=== PATIENT | male | born 1955 | race Caucasian/White ===

== ENCOUNTER 2017-01-25 22:27 | Inpatient (IN) | payer MEDICAID ==
[~2017-01-25] VITALS: Ht 172.7 cm; Wt 113.7 kg
[2017-01-25] MEDS ORDERED: ASPIRIN 81 MG TABLET CHEW PO ONE (23:00)
[2017-01-25] MEDS ORDERED: SODIUM CHLORIDE FLUSH 10ML SYR IVF ONE (23:00)
[2017-01-25] MEDS ORDERED: NITROGLYCERIN SINGLE TAB 0.4 MG SL PRN (23:00)
[2017-01-25] MEDS ORDERED: HYDR25TA6 PO (23:10)
[2017-01-25] MEDS ORDERED: SIMV40TA3 PO (23:10)
[2017-01-25] MEDS ORDERED: GABA400C PO (23:10)
[2017-01-25] MEDS ORDERED: CLOP75TA PO (23:10)
[2017-01-25] MEDS ORDERED: FURO-92 PO (23:10)
[2017-01-25] MEDS ORDERED: TIOT18CA INH (23:10)
[2017-01-25] MEDS ORDERED: CARV6.252 PO (23:10)
[2017-01-25] MEDS ORDERED: CHOL20002 PO (23:10)
[2017-01-25] MEDS ORDERED: BACL-19 PO (23:10)
[2017-01-25 23:26] LABS: BLOOD UREA NITROGEN 10 mg/dL (7-18)
[2017-01-25] MEDS ORDERED: LORazepam 1MG TABLET ONE (23:45)
[2017-01-25] MEDS ORDERED: OXYcodone/APAP 5/325MG TABLET ONE (23:46)
[2017-01-25] MEDS ORDERED: ASPIRIN 81 MG TABLET CHEW ONE (23:55)
[2017-01-26] MEDS ORDERED: LORazepam 1MG TABLET PO ONE
[2017-01-26] MEDS ORDERED: OXYcodone/APAP 5/325MG TABLET PO ONE
[2017-01-26] MEDS ORDERED: SODIUM CHLORIDE FLUSH 10ML SYR IVF PRN (01:30)
[2017-01-26 02:02] VITALS: BP 112/70
[2017-01-26] MEDS ORDERED: LABETALOL 5MG/ML 40ML VIAL IVPush PRN (05:30)
[2017-01-26] MEDS ORDERED: ACETAMINOPHEN 325 MG TABLET PO PRN (05:30)
[2017-01-26] MEDS ORDERED: METHOCARBAMOL 750 MG TABLET PO PRN (05:30)
[2017-01-26] MEDS ORDERED: ONDANSETRON 2MG/ML, 2ML IVPush PRN (05:30)
[2017-01-26] MEDS ORDERED: NICOTINE 14MG/24 HR PATCH.TD24 TD SCH (05:30)
[2017-01-26] MEDS ORDERED: morphine SULFATE 10 MG/ML, 1ML IVPush PRN (05:30)
[2017-01-26] MEDS ORDERED: POTASSIUM CHLORIDE 40 MEQ in SODIUM CHLORIDE 0.9% 500 ML IV ONE (05:30)
[2017-01-26] MEDS ORDERED: ENALAPRILAT 1.25 MG/ML, 2ML IVPush PRN (05:30)
[2017-01-26] MEDS ORDERED: POLYETHYLENE GLYCOL 17 GM PACKET PO PRN (05:30)
[2017-01-26] MEDS ORDERED: BISACODYL 10 MG SUPP PR PRN (05:30)
[2017-01-26] MEDS ORDERED: hydrALAzine 20 MG/ML, 1ML IVPush PRN (05:30)
[2017-01-26] MEDS: GABAPENTIN 400 MG CAPSULE PO SCH ×2 (05:58→11:00)
[2017-01-26] MEDS: SODIUM CHLORIDE 0.9% 1,000 ML IV SCH ×2 (05:58→16:25)
[2017-01-26] MEDS: HEPARIN 5,000 UNITS/ML, 1ML SQ SCH ×2 (05:58→13:30)
[2017-01-26] MEDS ORDERED: ASPIRIN 81 MG TABLET EC PO SCH (06:00)
[2017-01-26 06:56] VITALS: BP 114/82
[2017-01-26 07:00] LABS: IS PT STATUS REG ER OR PRE ER? NO
[2017-01-26] MEDS ORDERED: REGADENOSON 0.4 MG/5 ML SYRINGE ONE ×2 (07:48→14:01)
[2017-01-26] MEDS: IPRATROPIUM 0.5 MG/2.5 ML INHA HHN SCH ×2 (08:08→15:00)
[2017-01-26 08:25] LABS: BLOOD UREA NITROGEN 12 mg/dL (7-18)
[2017-01-26] MEDS ORDERED: CARVEDILOL 6.25 MG TABLET PO SCH (09:00)
[2017-01-26] MEDS ORDERED: CHOLECALCIFEROL 1,000 UNIT TABLET PO SCH (09:00)
[2017-01-26] MEDS ORDERED: CLOPIDOGREL 75 MG TABLET PO SCH (09:00)
[2017-01-26] MEDS ORDERED: SENNA/DOCUSATE TABLET PO SCH (09:00)
[2017-01-26] MEDS ORDERED: BACLOFEN 10 MG TABLET PO SCH (09:00)
[2017-01-26 09:48] LABS: DAU SCREEN DISCLAIMER
[2017-01-26] MEDS ORDERED: GADOBUTROL 10 MMOL/10 ML PFS ONE (11:45)
[2017-01-26 12:51] LABS: ABG COLLECTION SITE LEFT RADIAL; COLLATERAL CIRCULATION TESTING NORMAL
[2017-01-26 13:11] LABS: IS PT STATUS REG ER OR PRE ER? NO
[2017-01-26 13:17] LABS: ASPARTATE AMINO TRANSFERASE 14 U/L (15-37); BLOOD UREA NITROGEN 10 mg/dL (7-18)
[2017-01-26 16:29] VITALS: BP 122/75
[2017-01-26 19:11] LABS: IS PT STATUS REG ER OR PRE ER? NO
[2017-01-26] MEDS ORDERED: SIMVASTATIN 40 MG TABLET PO SCH (21:00)
== END 2017-01-26 19:39 | disposition left against medical advice (07) | DRG 311 ==
LOC: ED 23:59 → EDIP 01-26 01:07 → 5SO 01-26 02:34
PROVIDERS: ADMIT Internal Medicine; ATTEND Internal Medicine
PROC: 0T9B70Z Drainage of Bladder with Drainage Device, Via Natural or Artificial Opening (ICD-10-PCS; principal; 2017-01-26)
DX: I24.9 Acute ischemic heart disease, unspecified (principal); G93.41 Metabolic encephalopathy; E44.0 Moderate protein-calorie malnutrition; I25.10 Atherosclerotic heart disease of native coronary artery without angina pectoris; I73.9 Peripheral vascular disease, unspecified; J44.9 Chronic obstructive pulmonary disease, unspecified; E78.5 Hyperlipidemia, unspecified; I10 Essential (primary) hypertension; E87.6 Hypokalemia; R51 Headache; Z53.21 Procedure and treatment not carried out due to patient leaving prior to being seen by health care provider; M54.2 Cervicalgia; Z95.1 Presence of aortocoronary bypass graft; Z79.899 Other long term (current) drug therapy; Z88.6 Allergy status to analgesic agent; Z68.38 Body mass index [BMI] 38.0-38.9, adult
CPT/HCPCS: 36415; 36600; 70450; 70551; 71010; 72156; 78452; 80048; 80053; 80307; 81003; 82040; 82140; 82607; 82803; 83036; 83735; 83880; 84439; 84443; 84484; 85025; 85379; 85610; 85730; 93005; 93017; 93306; 93880; 99285; A9585; J1644; J2785; J3480; A9502; C9898; J7030; J7040

== ENCOUNTER 2017-02-20 14:14 | Inpatient (IN) | payer MEDICAID ==
[~2017-02-20] VITALS: Ht 172.7 cm; Wt 115.0 kg
[~2017-02-20 14:14] MED LIST: BACL-19 PO; CARV6.252 PO; CHOL20002 PO; CLOP75TA PO; FURO-92 PO; GABA400C PO; HYDR25TA6 PO; SIMV40TA3 PO; TIOT18CA INH
[2017-02-20] MEDS ORDERED: SODIUM CHLORIDE FLUSH 10ML SYR IVF ONE (16:00)
[2017-02-20 16:16] LABS: HEMATOCRIT 39.7 % (39.2-51.8); HEMOGLOBIN 13.3 g/dL (13.7-18.0); WHITE BLOOD COUNT 9.6 x10^3/uL (3.4-10)
[2017-02-20 16:24] LABS: BLOOD UREA NITROGEN 19 mg/dL (7-18)
[2017-02-20 16:29] LABS: ASPARTATE AMINO TRANSFERASE 23 U/L (15-37)
[2017-02-20 16:36] LABS: IS PT STATUS REG ER OR PRE ER? YES
[2017-02-20] MEDS ORDERED: HYDR-879 PO (16:44)
[2017-02-20] MEDS ORDERED: ENOXAPARIN 100 MG/ML SQ ONE (17:30)
[2017-02-20] MEDS ORDERED: CEFTRIAXONE PMX 1GM/50ML 50 ML IVPB ONE (17:30)
[2017-02-20] MEDS ORDERED: SODIUM CHLORIDE 0.9% 1,000ML IVBOLUS ONE (17:30)
[2017-02-20] MEDS ORDERED: AZITHROMYCIN 500 MG in SODIUM CHLORIDE 0.9% 250 ML IV ONE (17:30)
[2017-02-20] MEDS ORDERED: ASPIRIN 81 MG TABLET CHEW PO ONE (17:30)
[2017-02-20] MEDS ORDERED: CEFTRIAXONE PMX 1GM/50ML 50 ML ONE (17:47)
[2017-02-20] MEDS ORDERED: ASPIRIN 81 MG TABLET CHEW ONE (17:53)
[2017-02-20] MEDS ORDERED: ACETAMINOPHEN 325 MG TABLET PO PRN (19:00)
[2017-02-20] MEDS ORDERED: ONDANSETRON 2MG/ML, 2ML IVPush PRN (19:00)
[2017-02-20] MEDS ORDERED: POLYETHYLENE GLYCOL 17 GM PACKET PO PRN (19:00)
[2017-02-20] MEDS ORDERED: BISACODYL 10 MG SUPP PR PRN (19:00)
[2017-02-20] MEDS ORDERED: HEPARIN 5,000 UNITS/ML, 1ML SQ SCH (19:00)
[2017-02-20] MEDS ORDERED: NICOTINE 21 MG/24 HR PATCH.TD24 TD SCH (19:00)
[2017-02-20 20:45] VITALS: BP 125/68
[2017-02-20] MEDS ORDERED: SIMVASTATIN 40 MG TABLET PO SCH (21:00)
[2017-02-20] MEDS ORDERED: BACLOFEN 10 MG TABLET PO SCH (21:00)
[2017-02-20] MEDS: GABAPENTIN 400 MG CAPSULE PO SCH (22:11)
[2017-02-20] MEDS: BACLOFEN 10 MG TABLET PO SCH (22:12)
[2017-02-20] MEDS: NS + 20MEQ KCL 1,000 ML IV SCH (22:12)
[2017-02-20 22:40] LABS: IS PT STATUS REG ER OR PRE ER? NO
[2017-02-20] MEDS ORDERED: ALBUTEROL/IPRATROPIUM 2.5MG/0.5MG, 3 ML NPPB PRN (23:00)
[2017-02-21 01:13] VITALS: BP 110/74
[2017-02-21 04:58] LABS: ASPARTATE AMINO TRANSFERASE 21 U/L (15-37); BLOOD UREA NITROGEN 18 mg/dL (7-18)
[2017-02-21 05:00] LABS: IS PT STATUS REG ER OR PRE ER? NO
[2017-02-21] MEDS: BACLOFEN 10 MG TABLET PO SCH ×3 (05:00→16:00)
[2017-02-21] MEDS: GABAPENTIN 400 MG CAPSULE PO SCH ×3 (05:04→16:03)
[2017-02-21] MEDS: HYDROcodone/APAP 10/325 MG TABLET PO PRN ×2 (05:04→12:47)
[2017-02-21 05:45] LABS: HEMATOCRIT 37.5 % (39.2-51.8); HEMOGLOBIN 12.5 g/dL (13.7-18.0)
[2017-02-21] MEDS ORDERED: POTASSIUM CHLORIDE 20 MEQ TAB.ER.PRT PO SCH (08:00)
[2017-02-21 08:20] VITALS: BP_SYST 94; BP_SYST 96; BP_DIAS 56; BP_DIAS 60
[2017-02-21] MEDS: NS + 20MEQ KCL 1,000 ML IV SCH ×2 (08:41→16:04)
[2017-02-21] MEDS ORDERED: CARVEDILOL 6.25 MG TABLET PO SCH (09:00)
[2017-02-21] MEDS ORDERED: HYDROCHLOROTHIAZIDE 25 MG TABLET PO SCH (09:00)
[2017-02-21] MEDS ORDERED: FUROSEMIDE 40 MG TABLET PO SCH (09:00)
[2017-02-21] MEDS ORDERED: Tiotropium Bromide** (Spiriva**) 18 MCG INH SCH (09:00)
[2017-02-21] MEDS ORDERED: CLOPIDOGREL 75 MG TABLET PO SCH (09:00)
[2017-02-21] MEDS ORDERED: CHOLECALCIFEROL 1,000 UNIT TABLET PO SCH (09:00)
[2017-02-21] MEDS ORDERED: SENNA/DOCUSATE TABLET PO SCH (09:00)
[2017-02-21 15:57] VITALS: BP 125/69
[2017-02-21] MEDS ORDERED: BACL-19 PO (16:08)
[2017-02-21] MEDS ORDERED: ENAL5TAB PO (16:08)
[2017-02-21] MEDS ORDERED: FLUT1AER INH (16:08)
[2017-02-21] MEDS ORDERED: DOXY100T PO (16:16)
== END 2017-02-21 18:30 | disposition home or self-care (01) | DRG 91 ==
LOC: ED 16:54 → EDIP 17:35 → 5SO 20:36
PROVIDERS: ADMIT Internal Medicine; ATTEND Internal Medicine
DX: G47.419 Narcolepsy without cataplexy (principal); I50.31 Acute diastolic (congestive) heart failure; J96.21 Acute and chronic respiratory failure with hypoxia; I95.9 Hypotension, unspecified; S09.90XA Unspecified injury of head, initial encounter; E87.5 Hyperkalemia; I11.0 Hypertensive heart disease with heart failure; J98.11 Atelectasis; F51.3 Sleepwalking [somnambulism]; M54.2 Cervicalgia; W19.XXXA Unspecified fall, initial encounter; Z99.81 Dependence on supplemental oxygen; F17.210 Nicotine dependence, cigarettes, uncomplicated; G89.29 Other chronic pain; I73.9 Peripheral vascular disease, unspecified; G56.03 Carpal tunnel syndrome, bilateral upper limbs; I25.10 Atherosclerotic heart disease of native coronary artery without angina pectoris; M54.9 Dorsalgia, unspecified; Y93.01 Activity, walking, marching and hiking; J44.9 Chronic obstructive pulmonary disease, unspecified; I25.2 Old myocardial infarction; Z79.02 Long term (current) use of antithrombotics/antiplatelets; Z79.82 Long term (current) use of aspirin; Z95.1 Presence of aortocoronary bypass graft; Z88.5 Allergy status to narcotic agent; Y92.098 Other place in other non-institutional residence as the place of occurrence of the external cause; Y99.8 Other external cause status
CPT/HCPCS: 36415; 70450; 71010; 72125; 72141; 80053; 80307; 82140; 83605; 83735; 83880; 84484; 85025; 87040; 93005; 96365; 96372; J0456; J0696; J1650; J3480; J7030; J7050

== ENCOUNTER 2017-09-01 05:35 | Inpatient (IN) | payer MEDICAID ==
[~2017-09-01] VITALS: Ht 172.7 cm; Wt 109.0 kg
[~2017-09-01 05:35] MED LIST changes: +DOXY100T PO; +ENAL5TAB PO; +FLUT1AER INH; +HYDR-879 PO
[2017-09-01 06:30] LABS: CHLORIDE 101 mmol/L (98-107)
[2017-09-01 06:31] LABS: ALBUMIN 3.6 g/dL (3.4-5.0); ANION GAP 5 mmol/L (5-15); CALCIUM 9.3 mg/dL (8.5-10.1); CREATININE 1.05 mg/dL (0.7-1.3)
[2017-09-01 06:33] LABS: BASOPHILS # (AUTO) 0.02 x10^3/uL (0-0.1); BASOPHILS % (AUTO) 0 % (0-1); EOSINOPHILS # (AUTO) 0.16 x10^3/uL (0-0.4); EOSINOPHILS % (AUTO) 3 % (1-7); LYMPHOCYTES # (AUTO) 1.77 x10^3/uL (1-3.4); LYMPHOCYTES % (AUTO) 31 % (22-44); MD NO; MEAN CORPUSCULAR HEMOGLOBIN 32.1 pg (27.5-34.5); MEAN CORPUSCULAR HGB CONC 33.9 g/dL (33.2-36.2); MEAN CORPUSCULAR VOLUME 94.7 fL (81-97); MEAN PLATELET VOLUME 6.9 fL (7.4-10.4); MONOCYTES # (AUTO) 0.55 x10^3/uL (0.2-0.8); MONOCYTES % (AUTO) 10 % (2-9); NEUTROPHILS # (AUTO) 3.28 x10^3/uL (1.8-6.8); NEUTROPHILS % (AUTO) 57 % (42-75); PLATELET COUNT 295 x10^3/uL (130-400); RED BLOOD COUNT 5.15 x10^6/uL (4.38-5.82); RED CELL DISTRIBUTION WIDTH 13.8 % (9.4-14.8)
[2017-09-01 06:35] LABS: TROPONIN I < 0.015 ng/mL (0.000-0.045)
[2017-09-01] MEDS ORDERED: AZITHROMYCIN 500 MG in SODIUM CHLORIDE 0.9% 250 ML IV ONE (07:30)
[2017-09-01] MEDS ORDERED: FENT1PAT77 TD (08:21)
[2017-09-01] MEDS ORDERED: FLUTICASONE/VILANTEROL 100-25MCG/INH INH SCH (09:00)
[2017-09-01] MEDS ORDERED: HYDROcodone/APAP 10/325 MG TABLET PO PRN (09:00)
[2017-09-01] MEDS ORDERED: CHOLECALCIFEROL 1,000 UNIT TABLET PO SCH (09:00)
[2017-09-01] MEDS ORDERED: TEMPLATE NON-FORMULARY MED. (Tiotropium Bromide** (Spiriva**) 18 MCG) INH SCH (09:00)
[2017-09-01] MEDS ORDERED: ENALAPRIL 5MG TABLET PO SCH (09:00)
[2017-09-01] MEDS ORDERED: CLOPIDOGREL 75 MG TABLET PO SCH (09:00)
[2017-09-01] MEDS ORDERED: CARVEDILOL 6.25 MG TABLET PO SCH (09:00)
[2017-09-01] MEDS ORDERED: FENTANYL 25 MCG PATCH TD SCH (09:00)
[2017-09-01 09:12] VITALS: BP 122/83
[2017-09-01] MEDS ORDERED: ASPI-496 PO (09:28)
[2017-09-01] MEDS ORDERED: BISACODYL 10 MG SUPP PR PRN (09:30)
[2017-09-01] MEDS ORDERED: DOCUSATE 100 MG CAPSULE PO PRN (09:30)
[2017-09-01] MEDS ORDERED: ACETAMINOPHEN 325 MG TABLET PO PRN (09:30)
[2017-09-01] MEDS ORDERED: POLYETHYLENE GLYCOL 17 GM PACKET PO PRN (09:30)
[2017-09-01] MEDS ORDERED: POTASSIUM CHLORIDE 20 MEQ TAB.ER.PRT PO ONE (09:30)
[2017-09-01] MEDS ORDERED: ENOXAPARIN 40 MG/0.4 ML SQ SCH (09:30)
[2017-09-01] MEDS ORDERED: NICOTINE 14MG/24 HR PATCH.TD24 TD SCH (09:30)
[2017-09-01] MEDS ORDERED: IPRATROPIUM 0.5 MG/2.5 ML INHA HHN SCH (10:00)
[2017-09-01] MEDS ORDERED: GABAPENTIN 400 MG CAPSULE PO SCH (11:00)
[2017-09-01] MEDS ORDERED: GUAIFENESIN 200 MG TABLET PO SCH (11:00)
[2017-09-01] MEDS ORDERED: BACLOFEN 10 MG TABLET PO SCH (11:00)
[2017-09-01] MEDS ORDERED: ALBUTEROL SULFATE 2.5 MG/3 ML NPPB PRN (11:30)
[2017-09-01 12:26] LABS: TROPONIN I < 0.015 ng/mL (0.000-0.045)
[2017-09-01 12:29] LABS: THYROID STIMULATING HORMONE 1.12 mIU/L (0.358-3.740)
[2017-09-01] MEDS ORDERED: IPRATROPIUM 0.5 MG/2.5 ML INHA NPPB SCH (15:00)
[2017-09-01] MEDS ORDERED: AMOXICILLIN/CLAV 875-125MG TABLET PO SCH (17:00)
[2017-09-01] MEDS ORDERED: SIMVASTATIN 40 MG TABLET PO SCH (21:00)
[2017-09-04] MEDS ORDERED: FENTANYL 12 MCG PATCH TD SCH (09:00)
[2017-09-04] MEDS ORDERED: FENTANYL REMOVE PATCH NOTE XX SCH (09:00)
== END 2017-09-01 13:10 | disposition left against medical advice (07) | DRG 189 ==
LOC: ED 07:11 → EDIP 07:12 → ED 07:20 → 4NOR 09:01
PROVIDERS: ADMIT Internal Medicine; ATTEND Internal Medicine
DX: J96.21 Acute and chronic respiratory failure with hypoxia (principal); F11.20 Opioid dependence, uncomplicated; J44.1 Chronic obstructive pulmonary disease with (acute) exacerbation; E87.6 Hypokalemia; F17.200 Nicotine dependence, unspecified, uncomplicated; G47.33 Obstructive sleep apnea (adult) (pediatric); G47.419 Narcolepsy without cataplexy; G89.29 Other chronic pain; I10 Essential (primary) hypertension; I25.10 Atherosclerotic heart disease of native coronary artery without angina pectoris; I25.2 Old myocardial infarction; I73.9 Peripheral vascular disease, unspecified; Z53.21 Procedure and treatment not carried out due to patient leaving prior to being seen by health care provider; K44.9 Diaphragmatic hernia without obstruction or gangrene; Z80.9 Family history of malignant neoplasm, unspecified; Z82.49 Family history of ischemic heart disease and other diseases of the circulatory system; Z95.1 Presence of aortocoronary bypass graft; Z88.5 Allergy status to narcotic agent; Z91.19 Patient's noncompliance with other medical treatment and regimen
CPT/HCPCS: 36415; 36600; 71046; 80048; 82040; 82803; 83735; 83880; 84443; 84484; 85025; 93005; J0456; J1650; J7050; J7512